=== PATIENT | male | born 1975 | race Caucasian/White ===

== ENCOUNTER 2024-12-23 06:18 | Day surgery (SDC) | payer BC, SELFPAY | END 2024-12-23 10:11 | disposition home or self-care (01) | LOC: GI 06:18 | PROVIDERS: ATTENDING PHYSICIAN Internal Medicine Gastroenterology | DX: Z12.11 Encounter for screening for malignant neoplasm of colon (principal); D12.0 Benign neoplasm of cecum; K57.30 Diverticulosis of large intestine without perforation or abscess without bleeding; K62.1 Rectal polyp; K64.8 Other hemorrhoids | CPT/HCPCS: 45385; 45380; 88305 ==